=== PATIENT | female | born 1955 | race Caucasian/White ===

== ENCOUNTER 2017-03-06 13:34 | Emergency (ER) | payer BC ==
--- NOTE | 2017-03-06 16:30 | RAD ---
Indication: Plantar metatarsal pain with weightbearing. Previous hallux valgus repair. Clinical differential includes arthritis, AVN, foreign body. Comparison: No relevant prior exams available on the [facility] for comparison. Technique: AP, lateral, and oblique views LEFT foot. Report: No conspicuous foreign body evident. Nonfocal soft tissue swelling. Bone density appears decreased throughout. No fracture or radiographic stigmata of stress reaction or avascular necrosis. Healed osteotomy site at the first metatarsal consistent with history of hallux valgus repair. Mild osteophytosis and moderate joint space narrowing at the first metatarsal phalangeal joint and less prominent osteoarthritis at the remaining articulations. Normal articular alignment. IMPRESSION: Osteoarthritis. No fracture, stress reaction, or stigmata of avascular necrosis evident.
[2017-03-06 17:05] VITALS: BP 123/71
--- NOTE | 2017-03-07 19:26 | ED ---
Lower Extremity - HPI Summary HPI Summary: Pt here w/ Lt foot pain x 1 month. No known trauma - just noticed it started hurting one day. Concerned she stepped on a FB and it's in her foot. Finally had relief after epsom salt soak yesterday - pain is much better today. Denies redness, swelling, streaking, fever, chills. H/o hallux repair on same foot as well as neuroma on opposite foot - wondering if she has the same thing here. - History of Current Complaint Chief Complaint: EDExtremityLower Stated Complaint: LEFT FOOT INJURY Time Seen by Provider: 03/06/17 15:06 Hx Obtained From: Patient Pain Intensity: 0 Pain Scale Used: 0-10 Numeric - Allergies/Home Medications Allergies/Adverse Reactions: Allergies Allergy/AdvReac Type Severity Reaction Status Date / Time Iodine Allergy Difficulty Verified 03/06/17 15:15 Breathing PMH/Surg Hx/FS Hx/Imm Hx Previously Healthy: Yes Endocrine/Hematology History: Denies: Hx Anticoagulant Therapy, Hx Blood Disorders Musculoskeletal History: Reports: Other Musculoskeletal History - Lt hallux repair Sensory History: Reports: Hx Contacts or Glasses Opthamlomology History: Reports: Hx Contacts or Glasses Infectious Disease History: No Infectious Disease History: Denies: Hx of Known/Suspected MRSA, Traveled Outside the [place] in Last 30 Days - Social History Lives: With Family Alcohol Use: None Hx Substance Use: No Substance Use Type: Reports: None Hx Tobacco Use: No Smoking Status (MU): Never Smoked Tobacco Review of Systems Constitutional: Negative Negative: Fever, Chills Negative: Chest Pain Negative: Shortness Of Breath Positive: no symptoms reported Musculoskeletal: Other - see HPI Negative: Bruising Negative: Weakness, Paresthesia, Numbness Psychological: Normal All Other Systems Reviewed And Are Negative: Yes Physical Exam Triage Information Reviewed: Yes Vital Signs On Initial Exam: Initial Vitals Temp Pulse Resp BP Pulse Ox 98.0 F 71 20 116/64 97 03/06/17 13:40 03/06/17 13:40 03/06/17 13:40 03/06/17 13:40 03/06/17 13:40 Vital Signs Reviewed: Yes Appearance: Positive: Well-Appearing, No Pain Distress, Well-Nourished Skin: Positive: Warm, Dry - no erythema, no ecchymosis over affected area of MT arch plantar surface Lt foot; also, does not appear to have FB, signs of trauma Head/Face: Positive: Normal Head/Face Inspection Eyes: Positive: EOMI ENT: Positive: Hearing grossly normal Respiratory/Lung Sounds: Positive: Breath Sounds Present Cardiovascular: Positive: Normal, Pulses are Symmetrical in both Upper and Lower Extremities. Negative: Leg Edema Left, Leg Edema Right Musculoskeletal: Positive: Normal, Strength/ROM Intact - (-) Cornelio's sign; pt has healed surgical scar over medial Lt hallux - no erythema, no edema, NTTP Neurological: Positive: Normal, Sensory/Motor Intact, Alert, Oriented to Person Place, Time, CN Intact II-III Psychiatric: Positive: Anxious - concerned Diagnostics - Vital Signs Vital Signs Temp Pulse Resp BP Pulse Ox 03/06/17 17:04 98.0 F 76 20 123/71 03/06/17 13:43 98.0 F 76 20 116/64 97 03/06/17 13:40 98.0 F 71 20 116/64 97 - Laboratory Lab Statement: Any lab studies that have been ordered have been reviewed, and results considered in the medical decision making process. Lower Extremity Course/Dx - Diagnoses Provider Diagnoses: Arthritis of left foot Discharge - Discharge Plan Condition: Stable Disposition: HOME Patient Education Materials: Osteoarthritis (ED) Referrals: [facility] [Outside] Additional Instructions: You appear to have arthritis in the joints of your feet. This can flair up due to overuse (ie. walking/running more than usual, walking on uneven ground, wearing poorly supportive footwear, etc). You may continue to use epsom salt soaks, ibuprofen 600mg every 6 hours alternating with acetaminophen 650mg every 6 hours for pain. You may also try topical analgesics (ie. biofreeze, bengay, etc). You are being referred to a guest services attendant today - please call tomorrow to schedule an appointment at your nearest convenience. *If you develop redness, swelling, fever, chills, numbness, weakness, follow-up with PCP or return to ED
== END 2017-03-06 17:04 | disposition home or self-care (01) ==
LOC: ED 13:34
DX: M19.072 Primary osteoarthritis, left ankle and foot (principal)
CPT/HCPCS: 99282

== ENCOUNTER 2019-12-01 21:50 | Emergency (ER) | payer BC ==
--- NOTE | 2019-12-01 22:52 | ED ---
Influenza-Like Illness - HPI Summary HPI Summary: Patient complains of cough 3 days, fever of 101 for one day 3 days ago, sore throat 2 days and diffuse back pain 2 days. Back pain starting in lower back bilaterally and then spreading to her entire back. Denies prior history of same , denies trauma, lifting. Denies neck stiffness, CP, N/C/D, abdominal pain, change in urine, change in BM. Medical history is borderline DM, not currently prescribed medication. 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 - History of Current Complaint Chief Complaint: EDGeneral Hx Obtained From: Patient Onset/Duration: Gradual Onset, Lasting Days Severity: Moderate Associated Signs & Symptoms: Fever, Myalgia, Cough, Sore Throat - Allergy/Home Medications Allergies/Adverse Reactions: Allergies Allergy/AdvReac Type Severity Reaction Status Date / Time iodine Allergy Hives/Diff. Verified 12/01/19 22:18 Breathing/I tching Home Medications: Home Medications Cyclobenzaprine TAB* [Flexeril 10 MG TAB*] 10 mg PO TID PRN 5 Days #15 tab 12/01 [Rx] PMH/Surg Hx/FS Hx/Imm Hx Endocrine/Hematology History: Denies: Hx Anticoagulant Therapy, Hx Blood Disorders Cardiovascular History: Denies: Hx Pacemaker/ICD History: Denies: Hx Dialysis Musculoskeletal History: Reports: Other Musculoskeletal History - Lt hallux repair Sensory History: Reports: Hx Contacts or Glasses Opthamlomology History: Reports: Hx Contacts or Glasses EENT History: Denies: Hx Deafness Infectious Disease History: No Infectious Disease History: Denies: Hx of Known/Suspected MRSA, Traveled Outside the in Last 30 Days - Family History Known Family History: Positive: Non-Contributory - Social History Alcohol Use: None Hx Substance Use: No Substance Use Type: Reports: None Hx Tobacco Use: No Smoking Status (MU): Never Smoked Tobacco Review of Systems Positive: Fever Eyes: Negative Positive: Sore Throat Cardiovascular: Negative Positive: Cough Gastrointestinal: Negative Genitourinary: Negative Musculoskeletal: Other Skin: Negative Neurological/Mental Status: Negative Psychological: Normal All Other Systems Reviewed And Are Negative: Yes Physical Exam - Summary Physical Exam Summary: Lung sounds clear to auscultation bilaterally. Regular rate and rhythm. Back nontender to palpation diffusely. Patient moves upper body freely. ENT exam unremarkable. Triage Information Reviewed: Yes Vital Signs On Initial Exam: Initial Vitals Temp Pulse Resp BP Pulse Ox 98.9 F 96 18 127/65 95 12/01/19 22:14 12/01/19 22:14 12/01/19 22:14 12/01/19 22:14 12/01/19 22:14 Vital Signs Reviewed: Yes Appearance: Positive: Well-Appearing Skin: Positive: Warm Head/Face: Positive: Normal Head/Face Inspection Eyes: Positive: Normal ENT: Positive: Normal ENT inspection Neck: Positive: Supple Respiratory/Lung Sounds: Positive: Clear to Auscultation Cardiovascular: Positive: Normal Abdomen Description: Positive: Nontender Musculoskeletal: Positive: Normal Neurological: Positive: Normal Psychiatric: Positive: Normal AVPU Assessment: Alert - Ashley Coma Scale Best Eye Response: 4 - Spontaneous Best Motor Response: 6 - Obeys Commands Best Verbal Response: 5 - Oriented Coma Scale Total: 15 Procedures - Sedation Patient Received Moderate/Deep Sedation with Procedure: No Diagnostics - Vital Signs Vital Signs Temp Pulse Resp BP Pulse Ox 12/01/19 22:14 98.9 F 96 18 127/65 95 - Laboratory Result Diagrams: 12/01/19 22:23 12/01/19 22:23 Lab Statement: Any lab studies that have been ordered have been reviewed, and results considered in the medical decision making process. Flu Symptom Course/Dx - Course Course Of Treatment: Patient complains of cough 3 days, fever of 101 for one day 3 days ago, sore throat 2 days and diffuse back pain 2 days. Back pain starting in lower back bilaterally and then spreading to her entire back. Denies prior history of same, denies trauma, lifting. Denies neck stiffness, CP , N/C/D, abdominal pain, change in urine, change in BM. Medical history is borderline DM, not currently prescribed medication. 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 Vital signs within normal limits. Labs unremarkable. Chest x-ray unremarkable. - Diagnoses Provider Diagnoses: Viral syndrome, Muscle spasm of back Discharge ED - Sign-Out/Discharge Documenting (check all that apply): Patient Departure - Discharge Plan Condition: Stable Disposition: HOME Prescriptions: Cyclobenzaprine TAB* [Flexeril 10 MG TAB*] 10 mg PO TID PRN 5 Days #15 tab PRN Reason: Spasms Patient Education Materials: Viral Syndrome (ED), Muscle Spasm (ED) Referrals: No Primary Care Phys,NOPCP [Primary Care Provider] - Additional Instructions: Stay home until you are free of symptoms. The coronovirus test result is pending. Alternate ibuprofen 600 mg with Tylenol 650 mg every 3 hours if needed for body aches and fever control. Drink plenty of fluids to maintain hydration. Take Flexeril as directed if needed for muscle spasm of back. - Billing Disposition and Condition Condition: STABLE Disposition: Home
[2019-12-01 23:40] LABS: ABS Eosinophils 0.1 10^3/ul (0-0.6); ABS Lymphocytes 1.9 10^3/ul (1.0-4.8); ABS Monocytes 1.1 10^3/ul (0-0.8); ABS Neutrophils 3.5 10^3/ul (1.5-7.7); Eosinophil % 0.8 %; Hematocrit 40 % (35-47); Hemoglobin 13.5 g/dL (12.0-16.0); Lymphocyte % 28.8 %; Mean Corpuscular HGB Conc 34 g/dL (31-36); Mean Corpuscular Hemoglobin 32 pg (27-31); Mean Corpuscular Volume 95 fL (80-97); Mean Platelet Volume 7.7 fL (7.4-10.4); Platelet Count 220 10^3/uL (150-450); Red Blood Count 4.22 10^6 /uL (3.70-4.87); Red Cell Distribution Width 13 % (10-15); White Blood Count 6.7 10^3/uL (3.5-10.8)
[2019-12-01 23:49] LABS: Rapid Strep Molecular Negative (Negative)
[2019-12-01 23:50] LABS: Albumin 4.1 g/dL (3.2-5.2); Albumin/Globulin Ratio 1.5 (1-3); BUN/Creatinine Ratio 14.1 (8-20); C Reactive Protein 6.34 mg/L (<8.01); Calcium 8.7 mg/dL (8.6-10.3); EGFR African American 89.7 (>60); EGFR Non-African American 74.1 (>60); Globulin 2.8 g/dL (2-4); Total Bilirubin 0.2 mg/dL (0.2-1.0); Total Protein 6.9 g/dL (6.4-8.9)
[2019-12-02 00:23] LABS: Potassium 4.1 mmol/L (3.5-5.0)
[2019-12-02 00:36] LABS: Hepatitis C Antibody Negative (Negative)
[2019-12-02] MEDS ORDERED: Acetaminophen TAB* 325 MG PO ONE (00:41)
[2019-12-02] MEDS ORDERED: Lidocaine 2% VISCOUS* 15 ML UDC PO ONE (00:50)
[2019-12-02 01:41] VITALS: BP 105/62
== END 2019-12-02 01:40 | disposition home or self-care (01) ==
LOC: ED 21:50
DX: B34.9 Viral infection, unspecified (principal); J02.9 Acute pharyngitis, unspecified; M62.830 Muscle spasm of back
CPT/HCPCS: 36415; 71045; 80053; 83605; 85025; 86140; 86803; 87040; 87651; 99283; A9270-GY